=== PATIENT | female | born 1975 | race Caucasian/White ===

== ENCOUNTER 2023-07-24 13:44 | Emergency (ER) | payer SELFPAY ==
[2023-07-24 14:08] VITALS: BP 147/100; PULSE 100; RESP 18; TEMP 98.1; BMI 29.8
[2023-07-24 14:53] LABS: HEMATOCRIT 39.8 % (32.4-45.2); HEMOGLOBIN 13.4 G/dL (10.7-15.3); MCHC 33.6 g/dl (32.0-36.0); MEAN CELL VOLUME 95.2 fl (80-96); MEAN PLT VOLUME 7.6 fl (7.5-11.1); PLATELET COUNT 278.6 10^3/uL (134-434); RBC 4.18 10^6/uL (3.60-5.2); RDW 17.3 % (11.6-15.6); WHITE BLOOD COUNT 3.9 10^3/uL (4.0-10.8)
[2023-07-24 14:55] LABS: INR 0.97 (0.83-1.09); PROTHROMBIN TIME (PATIENT) 11.2 SEC (9.7-13.0)
[2023-07-24 14:57] LABS: ACTIVATED PTT 27.6 SECONDS (25.2-36.5)
[2023-07-24 15:07] LABS: ALBUMIN 4.5 g/dl (3.4-5.0); ALK PHOS 42 U/L (45-117); ANION GAP 10 mmol/L (4-13); BILIRUBIN,TOTAL 0.6 mg/dl (0.2-1); CALCIUM 9.2 mg/dl (8.5-10.1); CHLORIDE 105 mmol/L (98-107); CO2 24 mmol/L (21-32); CREATININE 0.7 mg/dl (0.6-1.3); GLUCOSE,RANDOM 110 mg/dl (74-106); POTASSIUM 3.8 mmol/L (3.5-5.1); SGOT/AST 19 U/L (15-37); SGPT/ALT 19 U/L (7-52); SODIUM 139 mmol/L (136-145); TOT PROT 6.8 g/dl (6.4-8.2)
[2023-07-24] MEDS ORDERED: KETOROLAC TROMETHAMINE 15 MG/ML VIAL ONE (15:15)
[2023-07-24] MEDS: KETOROLAC TROMETHAMINE 15 MG/ML VIAL IVPUSH ONE (15:18)
[2023-07-24 15:47] LABS: PLATELET ESTIMATE ADEQUATE
[2023-07-24 18:22] LABS: HEMATOCRIT 34.7 % (32.4-45.2); HEMOGLOBIN 11.2 G/dL (10.7-15.3); MCH 30.8 pg (25.7-33.7); MCHC 32.4 g/dl (32.0-36.0); MEAN PLT VOLUME 7.1 fl (7.5-11.1); PLATELET COUNT 234.9 10^3/uL (134-434); RBC 3.65 10^6/uL (3.60-5.2); RDW 16.3 % (11.6-15.6); WHITE BLOOD COUNT 7.9 10^3/uL (4.0-10.8)
[2023-07-24 18:34] LABS: PLATELET ESTIMATE ADEQUATE
== END 2023-07-24 19:09 | disposition home or self-care (01) ==
LOC: FER 13:44
PROC: 3E0333Z Introduction of Anti-inflammatory into Peripheral Vein, Percutaneous Approach (ICD-10-PCS; principal; 2023-07-24)
DX: N93.9 Abnormal uterine and vaginal bleeding, unspecified (principal); R53.1 Weakness; R53.83 Other fatigue
CPT/HCPCS: 36415; 76830-TC; 80053; 81025; 84702; 85027; 85610; 85730; 86850; 86900; 86901; 99284-25